=== PATIENT | female | born 1985 | race Caucasian/White ===

== ENCOUNTER 2016-10-06 04:50 | Inpatient (IN) | payer BC ==
[2016-10-06] VITALS (13 sets, daily range): BP systolic 139–161; RESP 16–18; TEMP 98–98.5; Ht 167.6 cm; Wt 101.2 kg
[~2016-10-06] VITALS: Ht 167.6 cm; Wt 101.2 kg
[2016-10-06] MEDS ORDERED: ALU/MAG/SIM 30 ML UDC PO PRN (05:55)
[2016-10-06] MEDS ORDERED: CLINDAMYCIN 900 MG in DEXTROSE 5% 50 ML IV PRN (05:55)
[2016-10-06] MEDS ORDERED: PHARMACY TO DOSE GENTAMICIN IV PRN (05:55)
[2016-10-06] MEDS ORDERED: OXYTOCIN 15 UNITS/250 ML NS 250 ML IV SCH ×3 (05:55→15:00)
[2016-10-06] MEDS ORDERED: TERBUTALINE 1 MG/ML VIAL SUBQ PRN (05:55)
[2016-10-06] MEDS ORDERED: PROMETHAZINE 25 MG/ML VIAL IV PRN (05:55)
[2016-10-06] MEDS ORDERED: LIDOCAINE 1% 30 ML PF INFILTRATE ONE (05:55)
[2016-10-06] MEDS ORDERED: FAMOTIDINE 20 MG TAB PO PRN (05:55)
[2016-10-06] MEDS ORDERED: METOCLOPRAMIDE 10 MG/2 ML VIAL IV PUSH PRN (05:55)
[2016-10-06] MEDS ORDERED: LIDOCAINE 1% BUFFERED 1 ML SYR INTRADERM PRN (05:55)
[2016-10-06] MEDS ORDERED: LACT RINGERS 1,000 ML IV SCH (05:55)
[2016-10-06] MEDS ORDERED: ONDANSETRON 4 MG VIAL IV PRN (05:55)
[2016-10-06] MEDS ORDERED: ACETAMINOPHEN 325 MG TAB PO PRN (05:55)
[2016-10-06] MEDS ORDERED: FAMOTIDINE 20 MG INJ IV PRN (05:55)
[2016-10-06] MEDS ORDERED: MORPHINE 4 MG/ML SYR IV PRN (06:05)
[2016-10-06] MEDS ORDERED: GENTAMICIN 380 MG in SODIUM CHLORIDE 0.9% 100 ML IV PRN (07:00)
[2016-10-06] MEDS ORDERED: LIDOCAINE 2% MPF 10 ML EPIDURAL ONE (09:48)
[2016-10-06] MEDS ORDERED: ROPIV/FENT 0.2%-2MCG/ML 100 ML EPIDURAL ONE (11:08)
[2016-10-06] MEDS ORDERED: FENTANYL 100 MCG/2 ML AMP ONE (11:09)
[2016-10-06] MEDS ORDERED: LACT RINGERS 500 ML IV ONE (12:05)
[2016-10-06] MEDS ORDERED: SODIUM CHLORIDE 0.9% 500 ML IV PRN (12:05)
[2016-10-06] MEDS ORDERED: ROPIV/FENT 0.2%-2MCG/ML 100 ML EPIDURAL SCH (12:05)
[2016-10-06] MEDS ORDERED: LACT RINGERS 500 ML IV PRN (12:05)
[2016-10-06] MEDS ORDERED: FENTANYL 100 MCG/2 ML AMP EPIDURAL ONE (12:05)
[2016-10-06] MEDS ORDERED: TDaP 0.5 ML VIAL IM.VACC ONE (15:00)
[2016-10-06] MEDS ORDERED: MAG HYDROX 30 ML UDC PO PRN (15:00)
[2016-10-06] MEDS ORDERED: MEASLES,MUMPS,RUBELLA VAC SUBQ.VACC ONE (15:00)
[2016-10-06] MEDS ORDERED: ASTRINGENT MED PADS 40'S TOPICAL PRN (15:00)
[2016-10-06] MEDS ORDERED: ZOLPIDEM 5 MG TAB PO PRN (15:00)
[2016-10-06] MEDS ORDERED: DERMOPLAST SPRAY TOPICAL PRN (15:00)
[2016-10-06] MEDS: Ibuprofen 600 MG TAB PO PRN (17:33)
[2016-10-06] MEDS ORDERED: NIFEdipine XL 60 MG TAB PO STA (17:48)
[2016-10-06] MEDS ORDERED: **ONLY ANESTEHSIA MAY ORDER OPIATES WHILE ON EPIDURAL XX SCH (20:00)
[2016-10-07 01:14] VITALS: BP_SYST 121; RESP 16; TEMP 98
[2016-10-07] MEDS: Ibuprofen 600 MG TAB PO PRN ×4 (04:32→22:40)
[2016-10-07 05:19] VITALS: BP_SYST 123; RESP 15; TEMP 98
[2016-10-07 08:34] VITALS: BP_SYST 134; RESP 20; TEMP 98
[2016-10-07] MEDS: DOCUSATE SOD 100 MG CAP PO SCH (08:36)
[2016-10-07] MEDS: NIFEdipine XL 30 MG TAB PO SCH (08:36)
[2016-10-07] MEDS: ONDANSETRON 4 MG TAB PO PRN ×3 (09:55→22:40)
[2016-10-07 13:54] VITALS: BP_SYST 146; RESP 20; TEMP 98
[2016-10-07 17:00] VITALS: BP_SYST 155; RESP 18; TEMP 98.1
[2016-10-07] MEDS ORDERED: MISSING DOSE XX ONE (21:55)
[2016-10-07 22:11] VITALS: BP_SYST 131; RESP 16
[2016-10-08] MEDS: ONDANSETRON 4 MG TAB PO PRN ×2 (04:51→11:16)
[2016-10-08] MEDS: Ibuprofen 600 MG TAB PO PRN ×2 (04:52→11:17)
[2016-10-08 05:37] VITALS: BP_SYST 136; RESP 16; TEMP 98.4
[2016-10-08] MEDS: DOCUSATE SOD 100 MG CAP PO SCH (08:44)
[2016-10-08] MEDS: NIFEdipine XL 30 MG TAB PO SCH (08:44)
[2016-10-08 10:01] VITALS: BP_SYST 138; RESP 18; TEMP 98.1
[2016-10-08 12:23] VITALS: BP_SYST 138; RESP 18; TEMP 98.1
== END 2016-10-08 13:01 | disposition home or self-care (01) | DRG 775 ==
LOC: LDOP 04:50 → LD 05:50 → ENPENDDIS 05:50 → OB 17:19
PROVIDERS: ADMIT Obstetrics & Gynecology; ATTEND Obstetrics & Gynecology
PROC: 0KQM0ZZ Repair Perineum Muscle, Open Approach (ICD-10-PCS; principal; 2016-10-06)
PROC: 10E0XZZ Delivery of Products of Conception, External Approach (ICD-10-PCS; 2016-10-06)
CPT/HCPCS: 80053; 81002; 82803; 84112; 85025